=== PATIENT | male | born 1995 | race African-American/Black ===

== ENCOUNTER 2017-04-04 14:38 | Emergency (ER) | payer OTHER ==
[~2017-04-04] VITALS: Ht 185.4 cm; Wt 69.0 kg
[2017-04-04] MEDS ORDERED: CYCLOBENZAPRINE HCL 10 MG TABLET PO ONE (16:30)
[2017-04-04] MEDS ORDERED: KETOROLAC TROMETHAMINE 60 MG/2 ML VIAL IM ONE (16:30)
[2017-04-04 16:59] VITALS: BP 128/66
== END 2017-04-04 17:11 | disposition home or self-care (01) ==
LOC: EMS 14:39
DX: S13.9XXA Sprain of joints and ligaments of unspecified parts of neck, initial encounter (principal); M54.5 Low back pain; F12.90 Cannabis use, unspecified, uncomplicated; F17.210 Nicotine dependence, cigarettes, uncomplicated; V89.2XXA Person injured in unspecified motor-vehicle accident, traffic, initial encounter; Y93.89 Activity, other specified; Y92.89 Other specified places as the place of occurrence of the external cause; Y99.8 Other external cause status
CPT/HCPCS: 96372; 99283; J1885